=== PATIENT | male | born 1940 | race Caucasian/White ===

== ENCOUNTER 2020-10-12 20:07 | Inpatient (IN) | payer MEDICARE ==
[~2020-10-12] VITALS: Ht 185.4 cm; Wt 81.6 kg
[2020-10-12 21:22] LABS: HEMOGLOBIN 13.1 gm/dl (14.0-17.5); RED BLOOD COUNT 3.72 M/UL (4.20-5.50); WHITE BLOOD COUNT 6.6 K/UL (4.5-11.0)
[2020-10-12 21:42] LABS: BUN/CREATININE RATIO 14 (0-10)
[2020-10-14 04:57] LABS: ACINETOBACTER BAUMANNII Not Detected (Negative); CANDIDA ALBICANS Not Detected (Negative); CANDIDA KRUSEI Not Detected (Negative); CANDIDA TROPICALIS Not Detected (Negative); ENTEROCOCCUS Not Detected (Negative); ESCHERICHIA COLI Not Detected (Negative); HAEMOPHILUS INFLUENZAE Not Detected (Negative); KLEBSIELLA OXYTOCA Not Detected (Negative); KLEBSIELLA PNEUMONIAE Not Detected (Negative); KPC-CARBAPENEM-RESISTANCE GENE Not Detected (Negative); PROTEUS Not Detected (Negative); PSEUDOMONAS AERUGINOSA Not Detected (Negative); SERRATIA MARCESANS Not Detected (Negative); STAPHYLOCOCCUS Not Detected (Negative); STAPHYLOCOCCUS AUREUS Not Detected (Negative); STREP AGALACTIAE (GROUP B) Not Detected (Negative); STREP PYOGENES (GROUP A) Not Detected (Negative); mecA (METHICILLIN RESIST GENE Not Detected (Negative); vanA/B (VANCOMYCIN RESIST GENE Not Detected (Negative)
[2020-10-14 05:38] LABS: STREPTOCOCCUS DETECTED (Negative)
[2020-10-16 05:30] LABS: HEMOGLOBIN 11.2 gm/dl (14.0-17.5); RED BLOOD COUNT 3.24 M/UL (4.20-5.50); WHITE BLOOD COUNT 5.6 K/UL (4.5-11.0)
[2020-10-16 05:39] LABS: BUN/CREATININE RATIO 13 (0-10)
[2020-10-17 03:39] LABS: HEMOGLOBIN 11.4 gm/dl (14.0-17.5); RED BLOOD COUNT 3.29 M/UL (4.20-5.50); WHITE BLOOD COUNT 6.1 K/UL (4.5-11.0)
[2020-10-17 04:00] LABS: BUN/CREATININE RATIO 13 (0-10)
[2020-10-18 01:29] LABS: BUN/CREATININE RATIO 11 (0-10)
[2020-10-21 02:53] LABS: HEMOGLOBIN 11.4 gm/dl (14.0-17.5); RED BLOOD COUNT 3.33 M/UL (4.20-5.50); WHITE BLOOD COUNT 5.9 K/UL (4.5-11.0)
[2020-10-21 04:06] LABS: BUN/CREATININE RATIO 29 (0-10)
[2020-10-21] MEDS ORDERED: TAB-A-VITE TA400 MC1 PO (14:07)
[2020-10-21] MEDS ORDERED: ELIQUIS 5 MG TAB5 MG PO (14:07)
[2020-10-21] MEDS ORDERED: NICOTINE PATCH1 EAC2 TOP (14:07)
[2020-10-21] MEDS ORDERED: VITAMIN D325 MCG PO (14:07)
[2020-10-21] MEDS ORDERED: ROCEPHIN 2 GM AD2 GM IV (14:07)
[2020-10-21] MEDS ORDERED: ARICEPT5 MG PO ×2 (14:08→14:24)
[2020-10-21] MEDS ORDERED: THIAMINE HCL100 MG PO (14:36)
--- NOTE | 2020-10-21 16:34 | NUR ---
REPORT CALLED TO [facility] TO [facility]AMES AT 1607 ON 10/21/20.
== END 2020-10-21 17:59 | DRG 70 ==
LOC: ER1 20:07 → MED SURG 4 10-13 03:01 → CDU 10-13 03:01 → MED SURG 4 10-13 19:19
PROVIDERS: Internal Medicine; Physician Assistant; ADMIT Internal Medicine
DX: G93.41 Metabolic encephalopathy (principal); E43 Unspecified severe protein-calorie malnutrition; N39.0 Urinary tract infection, site not specified; Z68.1 Body mass index [BMI] 19.9 or less, adult; F03.90 Unspecified dementia, unspecified severity, without behavioral disturbance, psychotic disturbance, mood disturbance, and anxiety; I48.91 Unspecified atrial fibrillation; I10 Essential (primary) hypertension; Z20.822 Contact with and (suspected) exposure to COVID-19; F17.200 Nicotine dependence, unspecified, uncomplicated; F10.20 Alcohol dependence, uncomplicated; D53.9 Nutritional anemia, unspecified; Y90.1 Blood alcohol level of 20-39 mg/100 ml; Z59.0 Homelessness
CPT/HCPCS: ECHO; 0240U; 36415; 70450; 71045; 80048; 80053; 80307; 81001; 82140; 82550; 82553; 82607; 82746; 82962; 83605; 83690; 83735; 83874; 84100; 84439; 84443; 84484; 85025; 85027; 86140; 87040; 87077; 87086; 87150; 87186; 93005; 93306; 96365; 96372; 96375; 96376; 97161; 97530; 99285; A6212; G0378; G0480; J0696; J1650; J3411; J3475; J3486; J7030; U0002